=== PATIENT | male | born 2000 | race Caucasian/White ===

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

== ENCOUNTER 2022-03-04 18:39 | Emergency (ER) | payer MEDICAID ==
[~2022-03-04] VITALS: Ht 193 cm; Wt 93.0 kg
[~2022-03-04 18:39] MED LIST changes: +ACYC-112 PO; +AMOX-358 PO
[2022-03-04 18:47] VITALS: BP 138/92
--- NOTE | 2022-03-04 18:56 | ED Lower Extremity ---
General Chief Complaint: Lower Extremity Stated Complaint: L KNEE PAIN Nursing Triage Note: PT STATES HE WAS GETTING OUT OF BED AND HIS LT KNEE POPPED OUT OF PLACE BUT WENT BACK IN. HX OF THIS HAPPENING IN THE PAST, HAS HAD SURGERY ON BOTH KNEES Source: patient Exam Limitations: no limitations History of Present Illness Date Seen by Provider: March 04, 2022 Time Seen by Provider: 18:53 Initial Comments To Er with c/o left knee pain. When he awakened this afternoon his kneecap seemed to dislocate and 'stayed out for a little bit" which caused him to fall. Upon falling it reduced but he has ongoing pain. He was ambulatory into Er. 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 Onset: just prior to arrival Severity: moderate Pain/Injury Location: left knee Method of Injury: fell Modifying Factors: Worse With Movement Allergies and Home Medications Allergies Coded Allergies: trazodone (Verified Allergy, Severe, 05/07/18) Patient Home Medication List Home Medication List Reviewed: Yes Acyclovir (Acyclovir) 800 Mg Tablet, 800 MG PO 5XD Prescribed by: LEVY CONDE on 10/31/21 0046 Amoxicillin/Potassium Clav (Augmentin 875-125 Tablet) 1 Each Tablet, 1 EACH PO BID Prescribed by: LEVY CONDE on 10/31/21 0046 Escitalopram Oxalate (Lexapro) 20 Mg Tablet, 20 MG PO DAILY, (Reported) Entered as Reported by: ANIKA MUELLER on 05/07/18 1343 Levothyroxine Sodium (Levothyroxine Sodium) 125 Mcg Tablet, 125 MCG PO DAILY, (Reported) Entered as Reported by: ANIKA MUELLER on 05/07/18 1343 Review of Systems Constitutional: see HPI EENTM: see HPI Respiratory: no symptoms reported Cardiovascular: no symptoms reported Genitourinary: no symptoms reported Musculoskeletal: see HPI Skin: no symptoms reported Psychiatric/Neurological: No Symptoms Reported Past Xhpcgmq-Jywggw-Ongnmp Hx Seasonal Allergies Seasonal Allergies: Yes Past Medical History Surgery/Hospitalization HX: ear infection Ear Surgery, Orthopedic Respiratory: No Cardiac: No Neurological: No Genitourinary: No Gastrointestinal: No Musculoskeletal: No Endocrine: No HEENT: No Cancer: No Psychosocial: No Integumentary: No Physical Exam Vital Signs Vital Signs - First Documented 03/04/22 18:47 Temp 36.6 Pulse 71 Resp 18 B/P (MAP) 138/92 (107) Pulse Ox 100 O2 Delivery Room Air Capillary Refill : Less Than 3 Seconds Height, Weight, BMI Height: 6'3.00" Weight: 238lbs. oz. 107.233439vk; 24.00 BMI Method:Stated General Appearance: WD/WN, no apparent distress HEENT: PERRL/EOMI, normal ENT inspection Respiratory: no respiratory distress, no accessory muscle use Hips: bilateral hip non-tender, bilateral hip normal inspection, bilateral hip normal range of motion Legs: bilateral leg non-tender, bilateral leg normal inspection, bilateral leg normal range of motion Knees: left knee other (limited ability to fully straighten out leg at the knee due to pain. patella has normal appearance. Old healed incision seen. NO palpable effusion or ecchymosis. No gross instability. strong DP pulse. ) Ankles: bilateral ankle non-tender, bilateral ankle normal inspection, bilateral ankle normal range of motion Feet: bilateral foot non-tender, bilateral foot normal inspection, bilateral foot normal range of motion Neurologic/Psychiatric: alert, normal mood/affect, oriented x 3 Progress/Results/Core Measures Results/Orders My Orders Orders - JOSÉ MIGUEL WHEELER APRN Ibuprofen Tablet (Motrin Tablet) (03/04/22 19:00) Hydrocodone/Apap 5/325 Tablet (Lortab 5 (03/04/22 19:00) Knee, Left, 3 Views (03/04/22 18:51) Vital Signs/I&O 03/04/22 18:47 Temp 36.6 Pulse 71 Resp 18 B/P (MAP) 138/92 (107) Pulse Ox 100 O2 Delivery Room Air Blood Pressure Mean: 107 Departure Impression Primary Impression: Internal derangement of knee Disposition: 01 HOME, SELF-CARE Condition: Stable Departure-Patient Inst. Decision time for Depature: 18:55 Referrals: NO,LOCAL PHYSICIAN (PCP/Family) Primary Care Physician Patient Instructions: Internal Derangement of the Knee Add. Discharge Instructions: 1. Return to ER for any concerns 2. ice pack to the knee for 30 minutes every 2-3 hours. Tylenol and ibuprofen for pain. follow up with your doctor later this week All discharge instructions reviewed with patient and/or family. Voiced understanding. Work/School Note: Work Release Form Date Seen in the Emergency Department: March 04, 2022 Return to Work: March 05, 2022 JOSÉ MIGUEL WHEELER APRN March 04, 2022 18:56
[2022-03-04] MEDS ORDERED: IBUPROFEN 600 MG (MOTRIN) TAB PO ONE (19:00)
[2022-03-04] MEDS ORDERED: HYDROcodone/APAP 5 MG/325 MG (LORTAB) TAB PO ONE (19:00)
--- NOTE | 2022-03-04 19:16 | Diagnostic Imaging Report ---
INDICATION: Pain. FINDINGS: Lateral view showed no convincing evidence for joint effusion. There is no dislocation. Irregularity of the upper-inner quadrant of the patella given the history is suspicious for a post-traumatic osteochondral defect. In the lateral view and projecting lateral to midline is a calcified density, may be a small loose body measuring 5 mm. Follow-up MRI suggested given the history of transient patellar dislocation to see if in fact this is a post-traumatic osteochondral fragment off the medial facet. No other potential injury. IMPRESSION: 1. Upper-inner quadrant patellar irregularity, given the history suspect for osteochondral defect. No loose body is suspected in the joint laterally and anteriorly which may be this bony fragment. Follow-up with nonemergent MRI knee recommended. 2. No significant joint effusion found. Dictated by: Dictated on workstation # [id number]
== END 2022-03-04 19:26 | disposition home or self-care (01) ==
LOC: EDUNIT# 18:39 → ER 18:41
DX: M23.92 Unspecified internal derangement of left knee (principal); Z98.890 Other specified postprocedural states; X50.1XXA Overexertion from prolonged static or awkward postures, initial encounter
CPT/HCPCS: 73562

== ENCOUNTER 2022-07-16 09:28 | Emergency (ER) | payer MEDICAID ==
[~2022-07-16] VITALS: Ht 193 cm; Wt 98.0 kg
--- NOTE | 2022-07-16 11:24 | Diagnostic Imaging Report ---
CLINICAL INDICATION: Patient left knee discomfort. Patient feels like left knee is hyperextended. EXAM: X-ray left knee, 3 views. COMPARISON: X-ray of the left knee dated 03/04/2022. FINDINGS: Stable appearance and configuration of the patella with slight irregularity involving the upper inner aspect. There is no fracture or dislocation seen on this exam. There is no significant knee effusion. IMPRESSION: 1: Stable x-ray of the left knee with no acute fracture or dislocation. 2: Stable chronic irregularity involving the upper inner aspect of the patella. Dictated by: Dictated on workstation # [id number]
--- NOTE | 2022-07-16 11:38 | Diagnostic Imaging Report ---
TECHNIQUE: Focused ultrasound of the left lower extremity was performed in the popliteal fossa. COMPARISON: None. Reason for exam: Left knee pain. FINDINGS: Focused ultrasound of the popliteal fossa demonstrate a patent popliteal vein and artery. No abnormal mass or fluid collection is seen. IMPRESSION: No sonographic evidence of Garcia cyst in the left popliteal fossa. No evidence of vascular injury. Dictated by: Dictated on workstation # [id number]
--- NOTE | 2022-07-16 12:30 | ED Lower Extremity ---
General Chief Complaint: Lower Extremity Stated Complaint: LEFT KNEE PAIN/BRUISING Nursing Triage Note: PT AMB TO [facility] PT CO OF L KNEE DISCOMFORT, STATES FEEL LIKE L KNEE IN HYPEREXTENDING. PT RATES PAIN /10 Source: patient Exam Limitations: no limitations Allergies and Home Medications Allergies Coded Allergies: trazodone (Verified Allergy, Severe, 05/07/18) Patient Home Medication List Acyclovir (Acyclovir) 800 Mg Tablet, 800 MG PO 5XD Prescribed by: LEVY CONDE on 10/31/21 0046 Amoxicillin/Potassium Clav (Augmentin 875-125 Tablet) 1 Each Tablet, 1 EACH PO BID Prescribed by: LEVY CONDE on 10/31/21 004 Escitalopram Oxalate (Lexapro) 20 Mg Tablet, 20 MG PO DAILY, (Reported) Entered as Reported by: ANIKA MUELLER on 05/07/18 1343 Levothyroxine Sodium (Levothyroxine Sodium) 125 Mcg Tablet, 125 MCG PO DAILY, (Reported) Entered as Reported by: ANIKA MUELLER on 05/07/18 1343 Past Wzotcpi-Zfggqq-Akbmcu Hx Seasonal Allergies Seasonal Allergies: Yes Past Medical History Surgery/Hospitalization HX: ear infection, SURGERY ON BOTH KNEES Ear Surgery, Orthopedic Respiratory: No Cardiac: No Neurological: No Genitourinary: No Gastrointestinal: No Musculoskeletal: No Endocrine: No HEENT: No Cancer: No Psychosocial: No Integumentary: No Physical Exam Vital Signs Vital Signs - First Documented 07/16/22 09:50 Temp 36.7 Pulse 73 Resp 16 B/P (MAP) 103/64 (77) Pulse Ox 97 Capillary Refill : Less Than 3 Seconds Height, Weight, BMI Height: 6'3.00" Weight: 238lbs. oz. [id number]; 26.00 BMI Method:Stated Progress/Results/Core Measures Results/Orders My Orders Orders - [facility] MD Knee, Left, 3 Views (07/16/22 10:19) Us Left Lower Ext [id number] (07/16/22 10:19) Vital Signs/I&O 07/16/22 09:50 Temp 36.7 Pulse 73 Resp 16 B/P (MAP) 103/64 (77) Pulse Ox 97 Blood Pressure Mean: 77 Departure Impression Primary Impression: Left knee pain Qualified Codes: M25.562 - Pain in left knee Disposition: 01 HOME, SELF-CARE Condition: Stable Departure-Patient Inst. Decision time for Depature: 12:34 Referrals: [facility] (PCP/Family) Primary Care Physician GAVIN STORY MD Patient Instructions: Knee Pain ED Add. Discharge Instructions: You may use ibuprofen up to 600 mg every 6 hours and/or Tylenol (acetaminophen) up to 1000 mg every 6 hours as needed for pain. Using a compressive sleeve at work may be helpful in providing stability and preventing swelling. At home elevate and ice in 20-minute intervals to reduce pain and swelling. Follow-up with an orthopedic provider such as Dr. Story as soon as possible for further evaluation. All discharge instructions reviewed with patient and/or family. Voiced understanding. Work/School Note: Work Release Form Date Seen in the Emergency Department: Jul 16, 2022 Return to Work: Jul 17, 2022 Other Restrictions Listed Below: May require multiple breaks per shift to rest the knee or ice the knee. Copy Copies To 1: GAVIN STORY MD Copies To 2: [facility] MD Jul 16, 2022 12:30
[2022-07-16 12:41] VITALS: BP 103/64
== END 2022-07-16 12:41 | disposition home or self-care (01) ==
LOC: EDUNIT# 09:28 → ER 09:32
DX: M25.562 Pain in left knee (principal); Z98.890 Other specified postprocedural states
CPT/HCPCS: 73562; 76881